=== PATIENT | female | born 1995 | race Hispanic/Latino ===

== ENCOUNTER 2019-06-05 11:07 | Emergency (ER) | payer SELFPAY ==
[2019-06-05 11:55] LABS: Urine Blood 2+ (NEG); Urine Glucose NEGATIVE (NEG); Urine Protein NEGATIVE (NEG); Urine Specific Gravity 1.015 (1.005-1.030); Urine pH 8.5 (5.0-7.0)
[2019-06-05 12:01] LABS: Urine Bacteria <20 /HPF (<20)
[2019-06-05 12:02] LABS: Urine Culture Reflex Order NOT NEEDED
[2019-06-05 12:03] LABS: Absolute Lymphocytes (CBC) 1.9 K/uL (0.7-4.9); Basophils % 0.4 % (0-1.3); Hematocrit 41.2 % (36.0-45.0); Lymphocytes % 11.9 % (15.3-44.8); MPV 8.2 fL (7.6-11.3); RBC Red Blood Cell Count 4.74 M/uL (3.86-4.86)
[2019-06-05 12:11] LABS: Potassium 4.1 mmol/L (3.5-5.1)
--- NOTE | 2019-06-05 13:52 | RAD REPORT ---
EXAM DESCRIPTION: CT - Abdomen Pelvis W Contrast - 06/05/2019 12:57 pm CLINICAL HISTORY: Abdominal pain/vaginal bleeding COMPARISON: none. TECHNIQUE: Computed axial tomography of the abdomen pelvis was obtained. 100 cc Isovue-300 was admin istered intravenously. Oral contrast was not requested which limits evaluation of bowel. All CT scans are performed using dose optimization technique as appropriate and may include automated exposure control or mA/KV adjustment according to patient size. FINDINGS: Fatty liver Spleen, pancreas, adrenal and kidneys appear unremarkable. There is no evidence of diverticulitis. Normal appendix. Possible septate uterus. The endometrium within the uterine body measures 28 millimeters IMPRESSION: Thickened endometrium. Pelvic ultrasound recommended. Possible septate uterus
--- NOTE | 2019-06-05 15:28 | RAD REPORT ---
EXAM DESCRIPTION: US - Transvaginal Study Probe - 06/05/2019 3:17 pm CLINICAL HISTORY: PAIN Pelvic pain. COMPARISON: PELVIC COMPLETE dated 03/16/2014; Abdomen Pelvis W Contrast dated 06/05/2019 FINDINGS: The uterus is normal in size, shape and echotexture. The uterus measures 9.3 x 4.8 x 4.3 c m. The endometrial stripe measures 13-20 mm, mildly thickened. Both ovaries are normal in size, shape and echotexture. The right ovary measures 2.5 x 2.5 x 2.2 cm. The left ovary measures 3.1 x 1.4 x 1.7 cm. No ovarian or parovarian lesions. No adnexal masses. Normal Doppler blood flow was demonstrated to both ovaries. No significant pelvic ascites. IMPRESSION: Moderate thickened endometrial stripe, otherwise negative study. This is suspected to be within physiologic limits.
--- NOTE | 2019-06-05 15:50 | EDPHYS ---
Physician Documentation [facility] Name: Adrienne Boles Age: 23 yrs Sex: Female : 1995 Arrival Date: 06/05/2019 Time: 11:09 Bed 18 Private MD: ED Physician Joni Bowen HPI: 06/05 11:41 This 23 yrs old Female presents to ER via Ambulatory with complaints of pm1 Vaginal Bleeding, Pelvic Pain. 11:41 The patient presents with vaginal bleeding that is heavy. pm1 11:41 Onset: The symptoms/episode began/occurred 3 day(s) ago. Modifying factors: The pm1 symptoms are alleviated by nothing, the symptoms are aggravated by nothing. Associated signs and symptoms: Pertinent positives: suprapubic cramping . Severity of symptoms: in the emergency department the symptoms are actually worse. The patient is sexually active. The patient's method of control includes nothing. The patient has not experienced similar symptoms in the past. Patient with hx of PCOS and is currently attempting to get . Patient with regular cycles for the past 4 months with medications given by her monotype mechanic. No dysuria, n/v/d. 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 - Social history:: Smoking status: Patient/guardian denies using tobacco. - Ebola Screening: : No symptoms or risks identified at this time. ROS: 11:41 Positive for vaginal bleeding, Negative for burning with urination, difficulty pm1 urinating, vaginal discharge. 11:41 Constitutional: Negative for fever, chills, and weight loss, Eyes: Negative for injury, pain, redness, and discharge, ENT: Negative for injury, pain, and discharge, Neck: Negative for injury, pain, and swelling, Cardiovascular: Negative for chest pain, palpitations, and edema, Respiratory: Negative for shortness of breath, cough, wheezing, and pleuritic chest pain. 11:41 Back: Negative for injury and pain, MS/Extremity: Negative for injury and deformity, Skin: Negative for injury, rash, and discoloration, Neuro: Negative for headache, weakness, numbness, tingling, and seizure. 11:41 Abdomen/GI: Positive for abdominal pain, of the suprapubic area, Negative for nausea, vomiting, and diarrhea. Exam: 11:41 Constitutional: This is a well developed, well nourished patient who is awake, alert, pm1 and in no acute distress. Head/Face: Normocephalic, atraumatic. Eyes: Pupils equal round and reactive to light, extra-ocular motions intact. Lids and lashes normal. Conjunctiva and sclera are non-icteric and not injected. Cornea within normal limits. Periorbital areas with no swelling, redness, or edema. ENT: Nares patent. No nasal discharge, no septal abnormalities noted. Tympanic membranes are normal and external auditory canals are clear. Oropharynx with no redness, swelling, or masses, exudates, or evidence of obstruction, uvula midline. Mucous membranes moist. Neck: Trachea midline, no thyromegaly or masses palpated, and no cervical lymphadenopathy. Supple, full range of motion without nuchal rigidity, or vertebral point tenderness. No Meningismus. Chest/axilla: Normal chest wall appearance and motion. Nontender with no deformity. No lesions are appreciated. Cardiovascular: Regular rate and rhythm with a normal S1 and S2. No gallops, murmurs, or rubs. Normal PMI, no JVD. No pulse deficits. Respiratory: Lungs have equal breath sounds bilaterally, clear to auscultation and percussion. No rales, rhonchi or wheezes noted. No increased work of breathing, no retractions or nasal flaring. 11:41 Skin: Warm, dry with normal turgor. Normal color with no rashes, no lesions, and no evidence of cellulitis. MS/ Extremity: Pulses equal, no cyanosis. Neurovascular intact. Full, normal range of motion. 11:41 Abdomen/GI: Inspection: abdomen appears normal, Bowel sounds: normal, Palpation: soft, mild abdominal tenderness, in the suprapubic area, mass, is not appreciated, rebound tenderness, is not appreciated. 11:41 Back: normal spinal alignment noted, CVA tenderness, that is mild, is noted on the left. 11:41 Neuro: Orientation: is normal, Motor: is normal, moves all fours. Vital Signs: 11:24 BP 129 / 74; Pulse 84; Resp 17; Temp 98.7; Pulse Ox 100% ; Weight 99.79 kg; Height 5 bp ft. 6 in. (167.64 cm); 12:08 BP 123 / 65; Pulse 74; Resp 14; Pulse Ox 99% ; bp 14:12 BP 114 / 79; Pulse 70; Resp 17; Temp 98.9(TE); Pulse Ox 99% on R/A; mh5 11:24 Body Mass Index 35.51 (99.79 kg, 167.64 cm) bp MDM: 11:16 Patient medically screened. pm1 15:48 Data reviewed: vital signs. Data interpreted: Pulse oximetry: on room air is 99 %. pm1 Interpretation: normal. Counseling: I had a detailed discussion with the patient and/or guardian regarding: the historical points, exam findings, and any diagnostic results supporting the discharge/admit diagnosis, lab results, radiology results, the need for outpatient follow up, to return to the emergency department if symptoms worsen or persist or if there are any questions or concerns that arise at home. 06/05 11:14 Order name: Urine Microscopic Only; Complete Time: 12:04 kdr 06/05 11:41 Order name: Basic Metabolic Panel; Complete Time: 12:25 pm1 06/05 11:41 Order name: CBC with Diff; Complete Time: 12:07 pm1 06/05 11:50 Order name: Urine Dipstick--Ancillary (enter results); Complete Time: 12:01 eb 06/05 11:50 Order name: Urine --Ancillary (enter results); Complete Time: 12:01 eb 06/05 12:08 Order name: CT Abd/Pelvis - IV Contrast Only; Complete Time: 14:03 pm1 06/05 11:14 Order name: Urine Test (obtain specimen); Complete Time: 11:38 kdr 06/05 11:14 Order name: Urine Dipstick-Ancillary (obtain specimen); Complete Time: 11:38 kdr 06/05 11:41 Order name: IV Saline Lock; Complete Time: 12:06 pm1 06/05 11:41 Order name: Labs collected and sent; Complete Time: 12:06 pm1 06/05 14:59 Order name: Transvaginal Study Probe; Complete Time: 15:40 EDNC Administered Medications: No medications were administered Disposition: 06/06 15:08 Co-signature as Attending Physician, Joni Bowen MD. Disposition: 06/05/19 15:49 Discharged to Home. Impression: Abnormal uterine and vaginal bleeding, unspecified. - Condition is Stable. - Discharge Instructions: Abnormal Uterine Bleeding. - Prescriptions for Tylenol- Codeine #3 300-30 mg Oral Tablet - take 2 tablets by ORAL route every 6 hours As needed; 20 tablet. - Medication Reconciliation Form, Thank You Letter, Antibiotic Education, Prescription Opioid Use form. - Follow up: Emergency Department; When: As needed; Reason: Worsening of condition. Follow up: Private Physician; When: 2 - 3 days; Reason: Recheck today's complaints, Continuance of care, Re-evaluation by your physician. - Problem is new. - Symptoms have improved. Signatures: Dispatcher [employer] [facility] Narinder Bower MD MD [facility] Buck Larkin, BANK ADVISOR BANK ADVISOR em Frankie Quarles, SUGAR REFINER SUGAR REFINER pm1 Joni Bowen MD MD Sebastian Crow, RN RN bp Corrections: (The following items were deleted from the chart) 06/05 14:59 14:06 Pelvis Complete+US.RAD.JEROME ordered. [facility] 16:06 15:49 06/05/2019 15:49 Discharged to Home. Impression: Abnormal uterine and vaginal em bleeding, unspecified. Condition is Stable. Forms are Medication Reconciliation Form, Thank You Letter, Antibiotic Education, Prescription Opioid Use. Follow up: Emergency Department; When: As needed; Reason: Worsening of condition. Follow up: Private Physician; When: 2 - 3 days; Reason: Recheck today's complaints, Continuance of care, Re-evaluation by your physician. Problem is new. Symptoms have improved. pm1
--- NOTE | 2019-06-05 15:50 | ER ---
Nurse's Notes [facility] Name: Adrienne Boles Age: 23 yrs Sex: Female : 1995 Arrival Date: 06/05/2019 Time: 11:09 Bed 18 Private MD: Diagnosis: Abnormal uterine and vaginal bleeding, unspecified Presentation: 06/05 11:21 Presenting complaint: Patient states: VAGINAL BLEEDING AND CRAMPING x3 DAYS, END OF bp MENSTRUAL CYCLE. Transition of care: patient was not received from another setting of care. Onset of symptoms is unknown. Risk Assessment: Do you want to hurt yourself or someone else? Patient reports no desire to harm self or others. Initial Sepsis Screen: Does the patient meet any 2 criteria? No. Patient's initial sepsis screen is negative. Does the patient have a suspected source of infection? No. Patient's initial sepsis screen is negative. Care prior to arrival: None. 11:21 Method Of Arrival: Ambulatory bp 11:21 Acuity: LAURA 3 bp Triage Assessment: 11:24 General: Appears in no apparent distress. comfortable, obese, Behavior is cooperative, bp appropriate for age, anxious. Pain: Complains of pain in pelvis. EENT: No deficits noted. Neuro: No deficits noted. Cardiovascular: No deficits noted. Respiratory: No deficits noted. GI: No signs and/or symptoms were reported involving the gastrointestinal system. : Reports vaginal bleeding that is heavy flow. Derm: No deficits noted. Musculoskeletal: No deficits noted. 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 - Social history:: Smoking status: Patient/guardian denies using tobacco. - Ebola Screening: : No symptoms or risks identified at this time. Screenin:27 Abuse screen: Denies threats or abuse. Denies injuries from another. Nutritional bp screening: No deficits noted. Tuberculosis screening: No symptoms or risk factors identified. Fall Risk None identified. Assessment: 11:26 General: SEE TRIAGE NOTE. : Urine is clear. bp 12:09 Reassessment: ELEVATED WBC NOTED. CT PENDING. bp 15:26 Reassessment: Patient appears in no apparent distress at this time. Patient and/or em family updated on plan of care and expected duration. Pain level reassessed. Patient is alert, oriented x 3, equal unlabored respirations, skin warm/dry/pink. Vital Signs: 11:24 BP 129 / 74; Pulse 84; Resp 17; Temp 98.7; Pulse Ox 100% ; Weight 99.79 kg; Height 5 bp ft. 6 in. (167.64 cm); 12:08 BP 123 / 65; Pulse 74; Resp 14; Pulse Ox 99% ; bp 14:12 BP 114 / 79; Pulse 70; Resp 17; Temp 98.9(TE); Pulse Ox 99% on R/A; mh5 11:24 Body Mass Index 35.51 (99.79 kg, 167.64 cm) bp ED Course: 11:09 Patient arrived in ED. as 11:14 Frankie Quarles NP is PHCP. pm1 11:14 Jnoi Bowen MD is Attending Physician. pm1 11:21 Sebastian Crow, BHARAT is Primary Nurse. bp 11:23 Triage completed. bp 11:24 Arm band placed on. bp 11:27 Patient has correct armband on for positive identification. Bed in low position. Call bp light in reach. Side rails up X2. Adult w/ patient. 11:30 Inserted saline lock: 20 gauge in right antecubital area, using aseptic technique. bp Blood collected. 12:57 CT Abd/Pelvis - IV Contrast Only In Process Unspecified. EDMS 13:00 CT completed. Patient tolerated procedure well. Patient moved to CT. Patient moved back co from CT. 15:18 Transvaginal Study Probe In Process Unspecified. EDMS 16:04 No provider procedures requiring assistance completed. IV discontinued, intact, em bleeding controlled, No redness/swelling at site. Pressure dressing applied. Administered Medications: No medications were administered Outcome: 15:49 Discharge ordered by . pm1 16:05 Discharged to home ambulatory. em 16:05 Condition: good 16:05 Discharge instructions given to patient, Instructed on discharge instructions, follow up and referral plans. medication usage, Demonstrated understanding of instructions, follow-up care, medications, Prescriptions given X 1. 16:06 Patient left the ED. em Signatures: Dispatcher [employer] EDBuck Whitman, TOOL AND DIE REPAIR TOOL AND DIE REPAIR em Karol Houser Patrick, AMNA HAND I THERMAL CUTTER pm1 Will Begum, Carlyn 5 Sebastian Crow, RN RN bp Corrections: (The following items were deleted from the chart) 11:39 11:26 : Urine is blood tinged, bp bp
[2019-06-05 16:21] VITALS: O2SAT 99
[2019-06-05 16:22] VITALS: BP 114/79; TEMP 98.9
== END 2019-06-05 16:06 | disposition home or self-care (01) ==
LOC: ER 11:07
DX: N93.9 Abnormal uterine and vaginal bleeding, unspecified (principal); Z88.1 Allergy status to other antibiotic agents
CPT/HCPCS: 36415; 74177; 76830; 80048; 81003; 81015; 81025; 85025; 99284; Q9967

== ENCOUNTER 2020-12-11 02:00 | Emergency (ER) | payer SELFPAY ==
--- OUTSIDE RECORDS SUMMARY | 2020-12-11 02:03 | XMS REPORT | Continuity of Care Document ---
:1995 Author Organization [facility] t Address [address] [place] [address] [address] [place] [address] Care Team Providers Name Role Phone Asked, No Pcp Primary Care Physician Unavailable Amanda MARRERO Attending Clinician Nella Min Attending Clinician Problems This patient has no known problems. Allergies, Adverse Reactions, Alerts Allergy Allergy Status Severity Reaction(s) Onset Inactive Treating Comm ents Source Name Type Date Date Clinician Amoxicil Propensi Active Rash Housto n benito ty to 12-03 Method[facility] adverse 00:00: st reaction 00 s to drug Social History Social Habit Start Date Stop Date Quantity Comments Source History [facility] Alcohol Binge ASSERTION [place] [facility] History [facility] Alcohol Std Drinks Tobacco use and 2020-12-03 2020-12-03 Never used [facility] exposure 00:00:00 00:00:00 Alcohol intake 2020-12-03 2020-12-03 Lifetime [place] [facility] 00:00:00 00:00:00 non-drinker (finding) History SDOH 2020-12-03 2020-12-03 1 [place] [facility] Alcohol Frequency 00:00:00 00:00:00 Sex [birth year] [facility] 00:00:00 00:00:00 Smoking Status Start Date Stop Date Source Never smoker [place] [facility] t Medications Ordered Filled Start Stop Current Ordering Indication Dosage Frequency Signature Comments Components Source Medication Medication Date Date Medication? Clinician (SIG) Name Name 2021-0 2021- Yes 1{tbl} QD Take 1 Louann mitchell 21-iron 4-17 05-17 tablet by Method i fu-folic 00:00: 23:[address] acid 00 :00 daily for ( 30 days. Complete) 14 mg iron- 400 mcg tablet Vital Signs Vital Name Observation Time Observation Value Comments Source Systolic blood 2020-12-03 12:15:00 111 mm[Hg] [facility] pressure Diastolic blood 2020-12-03 12:15:00 69 mm[Hg] Claudine Overton pressure Heart rate 2020-12-03 12:15:00 85 /min Finn Overton Respiratory rate 2020-12-03 12:15:00 14 /min Louann Overton Oxygen saturation in 2020-12-03 12:15:00 98 /min Finn Overton Arterial blood by Pulse oximetry Body height 2020-12-03 07:52:00 167.6 cm Finn Overton Body weight 2020-12-03 07:52:00 105 kg Finn Overton BMI 2020-12-03 07:52:00 37.36 kg/m2 Finn Overton Body temperature 2020-12-03 07:26:52 36.89 Pooja Louann Overton Procedures Procedure Date / Time Performed Performing Clinician [facility] e US SINGLE LESS 2020-12-03 11:10:05 Celina Castillo THAN 14 WEEKS US TRANSVAGINAL 2020-12-03 11:10:05 Celina Castillo WET PREP 2020-12-03 08:57:00 Celina Castillo URINE CULTURE 2020-12-03 07:52:00 Marques Patel URINALYSIS SCREEN AND 2020-12-03 07:52:00 Marques Patel MICROSCOPY, WITH REFLEX TO CULTURE HC COMPLETE BLD COUNT 2020-12-03 07:44:00 Marques Patel W/AUTO DIFF HCG QUALITATIVE, URINE 2020-12-03 07:44:00 Celina Castillo SCREEN HCG QUANTITATIVE, SERUM 2020-12-03 07:44:00 Celina Castillo BASIC METABOLIC PANEL 2020-12-03 07:44:00 Daniele Castilloair [facility] RH TYPE 2020-12-03 07:44:00 Celina Castillo [facility] ESTIMATED GFR 2020-12-03 07:44:00 Celina Castillo [facility] Plan of Care Planned Activity Planned Date Details Comments Source Future Scheduled 2021-03-19 INFLUENZA VACCINE [facility]ando [facility] Test 00:00:00 [code = INFLUENZA VACCINE] Future Scheduled 2016 Screening for [facility] Test 00:00:00 malignant neoplasm of cervix (procedure) [code = 526852596] Future Scheduled 2013 Hepatitis C [facility] Test 00:00:00 screening (procedure) [code = 558445771] Future Scheduled 2011 COVID-19 VACCINE (1) Agusto hutchins [facility] Test 00:00:00 [code = COVID-19 VACCINE (1)] Encounters Start End Encounter Admission Attending Care Care Encounter Source Date/Time Date/Time Type Type Clinicians Facility Department ID 2020-12-03 2020-12-03 Emergency MARQUES PATEL [facility] [id number] [place] 00:00:00 00:00:[address] 2020-01-12 2020-01-12 [facility] [id number] 15:38:12 17:14:00 [facility] [place] [id number] [place] [id number] [place] [id number] Results Test Description Test Test Results Result Source Time Comments Comments US Interface, Radiology [place] Transvaginal 17 Results Incoming - Meth odist 12:03:51 12/03/2020 12:07 PM CDT EXAMINATION: US TRANSVAGINALCLINICAL HISTORY: Vaginal bleeding ()COMPARISON: None.Transabdominal and endovaginal scanning performed.Real-time ultrasound images performed. 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 cardiac activity present at 173-180 bpm1.4 cm x 6.0 mm crescentic fluid collection adjacent to the sac suspicious for subchorionic hemorrhage graft small amount of free fluid in the endocervical canalYolk sac 5.4 mm.Gestational sac mean diameter 4.25 cm.[place]-rump length 3.78 cm.Composite sonographic age calculated at 10 weeks 3 days +/- 0 weeks 5 days. Estimated date of delivery 06/28/2021 compared to 04/27/2021 by LMPMaternal right ovary 2.3 cm x 1.6 cm x 1.4 similar with small follicles. Normal Doppler flowMaternal left ovary 3.3 cm x 1.5 cm x 1.3 cm with small follicles. Normal Doppler flowIMPRESSION:Single viable intrauterine gestation identifiedComposite sonographic age calculated at 10 weeks 3 days +/- 0 weeks 5 days. Estimated date of delivery 06/28/2021 compared to 04/27/2021 by LMPSuspect small subchorionic hemorrhageSmall amount of fluid in the endocervical canal.Question threatened [id number] US 2020-11- Interface, Radiology [place] Single Less Than 17 Results Incoming - [facility] 14 Weeks 12:03:23 12/03/2020 12:06 PM CDT EXAMINATION: US SINGLE LESS THAN 14 WEEKSCLINICAL HISTORY: Vaginal bleeding ()COMPARISON: None.Transabdominal and endovaginal examination performed.Real-time ultrasound images performed. 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 cardiac activity present at 173-180 bpm1.4 cm x 6.0 mm crescentic fluid collection adjacent to the sac suspicious for subchorionic hemorrhage graft small amount of free fluid in the endocervical canalYolk sac 5.4 mm.Gestational sac mean diameter 4.25 cm.[place]-rump length 3.78 cm.Composite sonographic age calculated at 10 weeks 3 days +/- 0 weeks 5 days. Estimated date of delivery 06/28/2021 compared to 04/27/2021 by LMPMaternal right ovary 2.3 cm x 1.6 cm x 1.4 similar with small follicles. Normal Doppler flowMaternal left ovary 3.3 cm x 1.5 cm x 1.3 cm with small follicles. Normal Doppler flow
--- NOTE | 2020-12-11 02:54 | ER ---
Nurse's Notes [facility] Name: Adrienne Boles Age: 25 yrs Sex: Female : 1995 Arrival Date: 12/11/2020 Time: 02:03 Bed Waiting Private MD: Diagnosis: Assessment: 12/11 02:53 General: no answer. patient called 3x. . mg2 ED Course: 02:03 Patient arrived in ED. ag3 Administered Medications: No medications were administered Outcome: 02:53 Patient left the ED. mg2 Signatures: Jarrett Avalos RN RN mg2 Yanique Prater ag3
== END 2020-12-11 02:53 | disposition left against medical advice (07) ==
LOC: ER 02:00
DX: Z02.9 Encounter for administrative examinations, unspecified (principal)

== ENCOUNTER 2020-12-27 09:41 | Emergency (ER) | payer OTHER, SELFPAY ==
--- OUTSIDE RECORDS SUMMARY | 2020-12-27 09:43 | XMS REPORT | Continuity of Care Document ---
:1995 Author Organization [facility] t Address [address] [place] [address] Dr. [address] [place] [address] Care Team Providers Name Role Phone Trinidad De Anda Primary Care Physician [phone] Kojo Mcdonald Attending Clinician Joo De Anda Attending Clinician Amanda MARRERO Attending Clinician Payers Payer Name Policy Type Policy Effective Date Expiration Date Sour ce Number TMH[place] OF [id number] [id number] [id number] Branch [id number], [place] [address]Medicaid [facility] [id number] 2016 [facility]-RMCHPxxxx 00:00:00 [facility] [id number] 2016-[facility] Branch [id number], [place] [address]Medicaid Advance Directives Directive Decision Effective Termination Comments Source Date Date Healthcare Agents on N/A [facility] [place] [facility] ersity FileNameRelationshipHealthcare of [place] Agent Medical RelationshipCommunicationScone health wesley long hospitalra Branch EspinozaMotherHealth Care [phone] (Mobile) Problems Condition Condition Condition Status Onset Resolution Last Treating Co mments Source Name Details Category Date Date Treatment Clinician Date Rubella Rubella Disease Active Overview: Univ ers non-immune non-immune 12-21 Address i ty of status, status, 00:00: pp [place] antepartum antepartum 00 Me dical Branch Susceptibl Susceptibl Disease Active Overview : Univers e to e to 12-21 Address ity of varicella var[place]ella [place] (non-immun (non-immun 00 Me dical e), e), Branch currently currently GBS (group GBS (group Disease Active Overview : Univers B B 12-19 pending ity of streptococ streptococ 00:[place] cus[place] UTI cus) UTI 00 Medica l complicati complicati Br anch ng ng Supervisio Supervisio Disease Active U jesus n of n of 4-30 ity of high-risk high-risk [place] 00 [facility] Vasovagal Vasovagal Disease Active Uni vers syncope syncope 2-21 ity of 00:00: [place] 00 Medical Branch Obesity in Obesity in Disease Active U nivers 2-21 ity of 00:00: [place] 00 Medical Branch ASCUS of ASCUS of Disease Active 2015-08 Overview: Un tamir cervix cervix 0-07 Pap smear ity of with with 00:00: 05/08/16 [place] negative negative 00 Medica l high risk high risk Bran ch HPV HPV PCOS PCOS Disease Active 2015-08 Univers (polycysti (polycysti 0-07 it y of c ovarian c ovarian 00:[place] syndrome) syndrome) 00 [facility] Encounter Encounter Disease Resolve 2015-082020-12-16 2020-12-16 Univers for for d 0-07 00:00:00 14:12:42 ity of preconcept preconcept [place] 00 Medical consultati consultati Br anch on on Morbid Morbid Disease Resolve 2015-082016-10-09 2016-10-09 Univers obesity obesity d 0-07 00:00:00 19:34:12 ity of due to due to 00:00: [place] excess excess 00 Medical calories calories Branch Convulsion Convulsion Disease Resolve 2015-082016-10-09 2016-10-09 Univers s, s, d 0-07 00:00:00 19:33:58 ity of unspecifie unspecifie [place] 00 Medical convulsion convulsion Br anch type type Allergies, Adverse Reactions, Alerts Allergy Allergy Status Severity Reaction(s) Onset Inactive Treating Comm ents Source Name Type Date Date Clinician Amoxicil Propensi Active Rash [place] ben[place] ty to [address] Methodi adverse 00:00: st reaction 00 s to drug Amoxicil Propensi Active Rash Univer s benito ty to 3 ity of adverse 00:00: [place] reaction 00 Medical s Branch Social History Social Habit Start Date Stop Date Quantity Comments Source History [facility] Meth odist Alcohol Binge ASSERTION [facility] ist History [facility] Meth odist Alcohol Std Drinks Exposure to Not sure University of SARS-CoV-2 [place] [facility] (event) Branch Tobacco use and 2020-12-03 2020-12-03 Never used Finn Kaufman ethodist exposure 00:00:00 00:00:00 Alcohol intake 2020-12-03 2020-12-03 Lifetime [facility] thodist 00:00:00 00:00:00 non-drinker (finding) History SDOH 2020-12-03 2020-12-03 1 [place] Meth odist Alcohol Frequency 00:00:00 00:00:00 [birth year] Finn Kaufman ethodist 00:00:00 00:00:00 Smoking Status Start Date Stop Date Source Never smoker Finn Huttonis t Medications Ordered Filled Start Stop Current Ordering Indication Dosage Frequency Signature Comments Components Source Medication Medication Date Date Medication? Clinician (SIG) Name Name cephALEXin 2020- Yes Group B 500mg Take 1 Univers (KEFLEX) 501-02 Streptococc capsule by ity of 500 mg 00:00: 04:59 us urinary mouth 4 [place] capsule 00 :00 tract (four) Medical infection times Branch affecting daily for , 10 days. antepartum 2020- Yes 1{tbl} QD Take 1 [place] 21-iron 12-03 tablet by Method i fu-folic 00:00: 23:[address] acid 00 :00 daily for ( 30 days. Complete) 14 mg iron- 400 mcg tablet Prenat. w/o 2017-0 Yes 1{capsu Take 1 U nivers [place] 5-03 le} capsule by ity of No7-Iron-FA 00:00: mouth [place] [facility] 00 daily. Medical 28-1.25-200 Branch mg capsule Immunizations Ordered Filled Immunization Date Status Comments [facility] e Immunization Name Name Td 2009-08-19 Completed [facility] 00:00:00 [facility] Vital Signs Vital Name Observation Time Observation Value Comments Source Systolic blood 2020-12-03 12:15:00 111 mm[Hg] Rima Overton pressure Diastolic blood 2020-12-03 12:15:00 69 mm[Hg] Claudine diaz Jainism pressure Heart rate 2020-12-03 12:15:00 85 /min [...] Procedure Date / Time Performed Performing Clinician Renetta julián US SINGLE LESS 2020-12-03 11:10:05 Celina Castillo THAN 14 WEEKS US TRANSVAGINAL 2020-12-03 11:10:05 Celina Castillo WET PREP 2020-12-03 08:57:00 Celina Castillo odtrav URINE CULTURE 2020-12-03 07:52:00 Marques Patel URINALYSIS SCREEN AND 2020-12-03 07:52:00 Marques Patel MICROSCOPY, WITH REFLEX TO CULTURE HC COMPLETE BLD COUNT 2020-12-03 07:44:00 Marques Patel W/AUTO DIFF HCG QUALITATIVE, URINE 2020-12-03 07:44:00 Celina Castillo SCREEN HCG QUANTITATIVE, SERUM 2020-12-03 07:44:00 Celina Castillo BASIC METABOLIC PANEL 2020-12-03 07:44:00 eClina Castillo Rima Overton RH TYPE 2020-12-03 07:44:00 Celina Castillo Marcin odist ESTIMATED GFR 2020-12-03 07:44:00 Celina Castillo Marcin odtrav Plan of Care Planned Activity Planned Date Details Comments Source Future Scheduled 2023-12-17 Screening for University of Test 00:00:00 malignant neoplasm [facility] ical of cervix Branch (procedure) [code = 100463950] Future Scheduled 2021-12-16 DTaP,Tdap,and Td Postponed from Unive rsity of Test 00:00:00 Vaccines (2 - 2006 [facility] Tdap) [code = (Alternative Branch DTaP,Tdap,and Td Guidelines) Vaccines (2 - Tdap)] Future Scheduled 2021-12-16 Depression University of Test 00:00:00 screening [place] [facility] (procedure) [code Branch = 846599400] Future Scheduled 2021-12-16 VARICELLA VACCINES Postponed from Uni versity of Test 00:00:00 (1 of 2 - 2-dose 1996 [place] [facility] childhood series) ( or Branch [code = VARICELLA ) VACCINES (1 of 2 - 2-dose childhood series)] Future Scheduled 2021-12-07 HPV VACCINES (1 - Postponed from Univ ersity of Test 00:00:00 2-dose series) 2006 [place] [facility] [code = HPV ( or Branch VACCINES (1 - ) 2-dose series)] Future Scheduled 2021-04-19 INFLUENZA VACCINE Univer sity of Test 00:00:00 (Season Ended) [place] [facility] [code = INFLUENZA Branch VACCINE (Season Ended)] Future Scheduled 2021-03-19 INFLUENZA VACCINE Rima Overton Test 00:00:00 [code = INFLUENZA VACCINE] Future Scheduled 2016 Screening for [facility] thodist Test 00:00:00 malignant neoplasm of cervix (procedure) [code = 611236655] Future Scheduled 2013 Hepatitis C [place] [facility] Test 00:00:00 screening (procedure) [code = 889840159] Future Scheduled 2013 Hepatitis C University of Test 00:00:00 screening [place] [facility] (procedure) [code Branch = 888962836] Future Scheduled 2011 COVID-19 VACCINE [place] [facility] Test 00:00:00 (1) [code = COVID-19 VACCINE (1)] Future Scheduled 2011 SARS-CoV-[address] [facility] 00:00:00 (COVID-19) Vaccine [facility] ical (1) [code = Branch SARS-CoV-2 (COVID-19) Vaccine (1)] Encounters Start End Encounter Admission Attending Care Care Encounter Source Date/Time Date/Time Type Type Clinicians Facility Department ID 2020-12-25 2020-12-26 Emergency [place], [facility] [id number] 23:38:00 03:00:00 Ulises Varma [place] [id number] [place] [id number] [place] [id number] 2020-12-19 2020-12-19 Telephone [facility] [id number] 00:00:00 00:00:00 Trinidad Ge LABOR ECONOMIST [id number] [facility] [id number] MATERNAL [id number] & CHILD [address] [place] [address] 2020-12-03 2020-12-03 Emergency MARQUES PATEL [facility] [id number] [place] 00:00:00 00:00:[address] Results Test Description Test Test Results Result Source Time Comments Comments US 2020-11- Interface, Radiology [place] Transvaginal 17 Results Incoming - Meth odist 12:03:51 12/03/2020 12:07 PM CDT EXAMINATION: US TRANSVAGINALCLINICAL HISTORY: Vaginal bleeding ()COMPARISON: None.Transabdominal and endovaginal scanning performed.Real-time ultrasound images performed. Permanent ultrasound images obtained for the patient's record.FINDINGS:Uterus 10.7 cm x 7.4 cm x 10.5 research and insights executive single viable intrauterine gestation identified. cardiac activity present at 173-180 bpm1.4 cm x 6.0 mm crescentic fluid collection adjacent to the sac suspicious for subchorionic hemorrhage graft small amount of free fluid in the endocervical canalYolk sac 5.4 mm.Gestational sac mean diameter 4.25 cm.[place]-rump length 3.78 cm.Composite sonographic age calculated at [...] canal.Question threatened [id number] US 2020-11- Interface, Radiology [place] Single Less Than 17 Results Incoming - Jainism 14 Weeks 12:03:23 12/03/2020 12:06 PM CDT EXAMINATION: US SINGLE LESS THAN 14 WEEKSCLINICAL HISTORY: Vaginal bleeding ()COMPARISON: None.Transabdominal and endovaginal examination performed.Real-time ultrasound images performed. Permanent ultrasound images obtained for the patient's record.FINDINGS:Uterus 10.7 cm x 7.4 cm x 10.5 research and insights executive single viable intrauterine gestation identified. cardiac activity present at 173-180 bpm1.4 cm x 6.0 mm crescentic fluid collection adjacent to the sac suspicious for subchorionic hemorrhage graft small amount of free fluid in the endocervical canalYolk sac 5.4 mm.Gestational sac mean diameter 4.25 cm.[place]-rump length 3.78 cm.Composite sonographic age calculated at [...]
[2020-12-27 10:30] LABS: Absolute Lymphocytes (CBC) 2.1 K/uL (0.7-4.9); Basophils % 0.2 % (0-1.3); Hematocrit 32.7 % (36.0-45.0); Lymphocytes % 11.9 % (15.3-44.8); MPV 7.9 fL (7.6-11.3); RBC Red Blood Cell Count 3.93 M/uL (3.86-4.86)
[2020-12-27] MEDS ORDERED: MORPHINE 4 MG/ML SYR ONE (10:41)
[2020-12-27] MEDS ORDERED: ONDANSETRON 4 MG/2 ML VIAL ONE (10:42)
[2020-12-27 11:04] LABS: BUN Blood Urea Nitrogen 7 mg/dL (7-18); Bicarbonate 26 mmol/L (21-32); Glucose Level 104 mg/dL (74-106); HCG, Quantitative 47587 mIU/mL (1-3); Potassium 3.7 mmol/L (3.5-5.1); Sodium Level 140 mmol/L (136-145)
--- NOTE | 2020-12-27 11:47 | RAD REPORT ---
EXAM DESCRIPTION: US - Transvaginal Study Probe - 12/27/2020 11:32 am CLINICAL HISTORY: Vaginal bleeding COMPARISON: none FINDINGS: The endometrial stripe is thickened within the lower uterine segment measuring 23 millimet ers. It is heterogeneous. IMPRESSION: Thickened, heterogeneous endometrium suspicious for retained products of conception
[2020-12-27] MEDS ORDERED: FENTANYL CITR 100 MCG/2 ML ONE (11:49)
--- NOTE | 2020-12-27 13:23 | ER ---
Nurse's Notes [facility] Name: Adrienne Boles Age: 25 yrs Sex: Female : 1995 Arrival Date: 12/27/2020 Time: 09:48 Bed 17 Private MD: Diagnosis: Spontaneous Presentation: 12/27 09:52 Chief complaint: EMS states: pt about 14wks . went to [facility] yesterday for tr6 lower abdominal cramping and was discharged. pt was on toilet at home and felt her water break and had vaginal bleeding. pt reports last period was Jul 21- Sep 10. pt n/v en route, zofran given. Coronavirus screen: Client denies travel out of the [place] in the last 14 days. Ebola Screen: Patient negative for fever greater than or equal to 101.5 degrees Fahrenheit, and additional compatible Ebola Virus Disease symptoms Patient denies exposure to infectious person. Patient denies travel to an Ebola-affected area in the 21 days before illness onset. Initial Sepsis Screen: Does the patient meet any 2 criteria? No. Patient's initial sepsis screen is negative. Does the patient have a suspected source of infection? No. Patient's initial sepsis screen is negative. Risk Assessment: Do you want to hurt yourself or someone else? Patient reports no desire to harm self or others. Onset of symptoms was December 26, 2020. 09:52 Method Of Arrival: EMS: [facility] tr6 10:17 Acuity: LAURA 3 tr6 Triage Assessment: 09:56 General: Appears distressed, Behavior is calm, cooperative, appropriate for age, tr6 crying. Pain: Complains of pain in lower abdomen. EENT: No deficits noted. No signs and/or symptoms were reported regarding the EENT system. Neuro: No deficits noted. Cardiovascular: No deficits noted. Respiratory: No deficits noted. GI: Abdomen is round distended, obese, lower abdominal tenderness. : Vaginal discharge is blood. placenta noted to be present on bed. Derm: No deficits noted. Musculoskeletal: No deficits noted. 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 - Social history:: Smoking status: unknown. Screenin:55 Abuse screen: Denies threats or abuse. Denies injuries from another. Nutritional tr6 screening: No deficits noted. Tuberculosis screening: No symptoms or risk factors identified. Fall Risk None identified. Assessment: 10:19 Reassessment: see triage assessment. tr6 10:29 Reassessment: pts father at bedside. tr6 11:00 Reassessment: pt transported to US via stretcher. tr6 11:27 Reassessment: pt returned to room after US. tr6 Vital Signs: 10:17 BP 108 / 57; Pulse 72; Resp 18; Temp 98.4; Pulse Ox 100% ; tr6 13:36 BP 111 / 60; Pulse 83; Resp 18; Pulse Ox 100% ; tr6 ED Course: 09:48 Patient arrived in ED. tr6 09:50 Oralia Champion FNP-C is [facility]. kb 09:50 Enrique Osborn MD is Attending Physician. kb 09:57 Arm band placed on right wrist. tr6 09:57 Patient has correct armband on for positive identification. Bed in low position. Call tr6 light in reach. Side rails up X 1. 10:18 Triage completed. tr6 10:20 Maintain EMS IV. Dressing intact. Good blood return noted. Site clean \T\ dry. Gauge \T\ tr 6 site: 20 LAC. 11:32 Transvaginal Study Probe In Process Unspecified. EDMS 13:24 Nenita Marin RN is Primary Nurse. tr6 13:34 Assist provider with pelvic exam:. tr6 13:34 IV discontinued, intact, bleeding controlled, No redness/swelling at site. Pressure tr6 dressing applied. Administered Medications: 10:28 Drug: Zofran (Ondansetron) 4 mg Route: IVP; Site: left antecubital; tr6 13:25 Follow up: Response: Nausea is decreased tr6 10:29 Drug: morphine 4 mg Route: IVP; Site: left antecubital; tr6 13:25 Follow up: Response: Pain is unchanged, physician notified tr6 11:32 Drug: fentaNYL (PF) 25 mcg Route: IVP; Site: left antecubital; tr6 13:26 Follow up: Response: Pain is decreased tr6 13:27 Drug: fentaNYL (PF) 25 mcg Route: IVP; Site: left antecubital; tr6 13:34 Follow up: Response: No adverse reaction; Pain is decreased tr6 Outcome: 13:22 Discharge ordered by . lida 13:35 Discharged to home via wheelchair. tr6 13:35 Condition: stable 13:35 Discharge instructions given to patient, family, Instructed on discharge instructions, follow up and referral plans. no drinking with medication, medication usage, safety practices, Demonstrated understanding of instructions, follow-up care, medications, Prescriptions given X 14:05 Patient left the ED. tr6 Signatures: Dispatcher [employer] EDOralia Monzon, MIGUEL RAM-Nenita Knutson RN RN tr6 Corrections: (The following items were deleted from the chart) 10:21 09:52 Chief complaint: EMS states: pt about 14wks . went to [facility] yesterday tr6 for lower abdominal cramping and was discharged. pt was on toilet at home and felt her water break and had vaginal bleeding. pt reports last period was Jul 21- Sep 10. tr6
--- NOTE | 2020-12-27 13:23 | EDPHYS ---
Physician Documentation [facility] Name: Adrienne Boles Age: 25 yrs Sex: Female : 1995 Arrival Date: 12/27/2020 Time: 09:48 Bed 17 Private MD: ED Physician Enrique Osborn HPI: 12/27 09:58 This 25 yrs old Female presents to ER via EMS with complaints of spontaneous kb . 09:58 The patient presents to the emergency department with vaginal bleeding, that is heavy, kb with clots, with tissue. The estimated gestational age is 14 weeks. course: care: at a clinic, Leakage of Fluid: none appreciated, Ultrasound: the patient had an ultrasound, on December 26, 2020, which was normal. Previous pregnancies: the patient has never been . Associated signs and symptoms: Pertinent positives: abdominal pain, vaginal bleeding. The patient has not experienced similar symptoms in the past. The patient has been recently seen by a physician: the ER physician, out of Town, yesterday, with similar presenting complaints. Pt reports abd cramping that started yesterday, was seen at [facility] ER and US revealed normal findings so she was discharged to follow up. Pt started having increased pain and vaginal bleeding at 0300. Pt reports she passed the fetus in the toilet and more bleeding just prior to calling 911. Pt reports abdominal cramping/pain at this time. 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 - Social history:: Smoking status: unknown. ROS: 09:58 Constitutional: Negative for fever, chills, and weight loss. kb 09:58 Abdomen/GI: Positive for abdominal cramps, Negative for nausea, vomiting, and diarrhea. 09:58 : Positive for vaginal bleeding. 09:58 All other systems are negative. Exam: 09:57 Constitutional: This is a well developed, well nourished patient who is awake, alert, kb and in no acute distress. Head/Face: Normocephalic, atraumatic. ENT: Moist Mucous membranes Cardiovascular: Regular rate and rhythm with a normal S1 and S2. No gallops, murmurs, or rubs. No pulse deficits. Respiratory: Respirations even and unlabored. No increased work of breathing, no retractions or nasal flaring. Skin: Warm, dry with normal turgor. Normal color. MS/ Extremity: Pulses equal, no cyanosis. Neurovascular intact. Full, normal range of motion. Neuro: Awake and alert, GCS 15, oriented to person, place, time, and situation. Moves all extremities. Normal gait. 09:57 Abdomen/GI: Inspection: obese Bowel sounds: normal, Palpation: soft, in all quadrants, moderate abdominal tenderness, in the left lower quadrant. 13:21 : Pelvic Exam: External exam: is normal, Speculum exam: mild bleeding, moderate kb bleeding, os that is open, tissue in vagina is seen, discharge, bloody, the family/significant other was present for the exam. Vital Signs: 10:17 BP 108 / 57; Pulse 72; Resp 18; Temp 98.4; Pulse Ox 100% ; tr6 13:36 BP 111 / 60; Pulse 83; Resp 18; Pulse Ox 100% ; tr6 MDM: 09:50 Patient medically screened. kb 09:57 Data reviewed: vital signs, nurses notes. Data interpreted: Pulse oximetry: on room air kb is 100 %. Interpretation: normal. 13:22 Counseling: I had a detailed discussion with the patient and/or guardian regarding: the kb historical points, exam findings, and any diagnostic results supporting the discharge/admit diagnosis, lab results, radiology results, the need for outpatient follow up, an OB/Gyne specialist, to return to the emergency department if symptoms worsen or persist or if there are any questions or concerns that arise at home. 12/27 09:50 Order name: Quantitative Hcg kb 12/27 09:50 Order name: Abo/rh Typing; Complete Time: 10:53 kb 12/27 09:50 Order name: Basic Metabolic Panel; Complete Time: 11:04 kb 12/27 09:50 Order name: CBC with Diff; Complete Time: 10:37 kb 12/27 09:50 Order name: HCG, Quantitative; Complete Time: 11:04 EDMS 12/27 09:50 Order name: IV Saline Lock; Complete Time: 10:17 kb 05/11 09:50 Order name: Labs collected and sent; Complete Time: 10:17 kb 12/27 09:50 Order name: NPO; Complete Time: 10:17 kb 12/27 11:31 Order name: Transvaginal Study Probe; Complete Time: 11:51 EDMS 12/27 12:18 Order name: Pelvic Exam Setup; Complete Time: 13:25 kb Administered Medications: 10:28 Drug: Zofran (Ondansetron) 4 mg Route: IVP; Site: left antecubital; tr6 13:25 Follow up: Response: Nausea is decreased tr6 10:29 Drug: morphine 4 mg Route: IVP; Site: left antecubital; tr6 13:25 Follow up: Response: Pain is unchanged, physician notified tr6 11:32 Drug: fentaNYL (PF) 25 mcg Route: IVP; Site: left antecubital; tr6 13:26 Follow up: Response: Pain is decreased tr6 13:27 Drug: fentaNYL (PF) 25 mcg Route: IVP; Site: left antecubital; tr6 13:34 Follow up: Response: No adverse reaction; Pain is decreased tr6 Disposition: 17:12 Co-signature as Attending Physician, Enrique Osborn MD. rn Disposition: 12/27/20 13:22 Discharged to Home. Impression: Spontaneous . - Condition is Stable. - Discharge Instructions: Miscarriage, [id number]. - Medication Reconciliation Form, Thank You Letter, Antibiotic Education, Prescription Opioid Use form. - Follow up: Emergency Department; When: As needed; Reason: Worsening of condition. Follow up: Private Physician; When: 2 - 3 days; Reason: Recheck today's complaints, Continuance of care, Re-evaluation by your physician. Signatures: Dispatcher [employer] [facility] Oralia Champion, CARPENTER PROTOTYPE-C CARPENTER PROTOTYPE-Ckb Enrique Osborn MD MD rn Ramnanan, Tiffany, RN RN tr6 Corrections: (The following items were deleted from the chart) 11:31 10:54 Transvaginal Ob+US.RAD.BRZ ordered. [facility] EDIL 14:05 13:22 12/27/2020 13:22 Discharged to Home. Impression: Spontaneous . Condition tr6 is Stable. Forms are Medication Reconciliation Form, Thank You Letter, Antibiotic Education, Prescription Opioid Use. Follow up: Emergency Department; When: As needed; Reason: Worsening of condition. Follow up: Private Physician; When: 2 - 3 days; Reason: Recheck today's complaints, Continuance of care, Re-evaluation by your physician. kb
[2020-12-27 14:14] VITALS: TEMP 98.4; O2SAT 100
[2020-12-27 14:16] VITALS: BP 111/60
== END 2020-12-27 14:05 | disposition home or self-care (01) ==
LOC: ER 09:41
DX: O03.9 Complete or unspecified spontaneous abortion without complication (principal); Z88.1 Allergy status to other antibiotic agents
CPT/HCPCS: 85025; 80048; 36415; 86900; 86901; 84702; 76830; J3010; J2405; 96374; 96375; 99284